=== PATIENT | male | born 1990 | race Two or more races ===

== ENCOUNTER 2021-05-18 07:32 | Emergency (ER) | payer MEDICAID ==
[~2021-05-18] VITALS: Ht 177.8 cm; Wt 97.5 kg
[2021-05-18] MEDS ORDERED: IBUP800T27 PO (08:44)
[2021-05-18 08:50] VITALS: BP 126/81
== END 2021-05-18 09:01 | disposition home or self-care (01) ==
LOC: ER 07:32
DX: S62.316A Displaced fracture of base of fifth metacarpal bone, right hand, initial encounter for closed fracture (principal); X58.XXXA Exposure to other specified factors, initial encounter; Y93.89 Activity, other specified; Y92.89 Other specified places as the place of occurrence of the external cause; Y99.8 Other external cause status
CPT/HCPCS: 29125; 73130